=== PATIENT | female | born 1960 | race Caucasian/White ===

== ENCOUNTER 2020-04-14 11:19 | Day surgery (SDC) | payer BC ==
[~2020-04-14] VITALS: Ht 154.9 cm; Wt 56.0 kg
[2020-04-14 11:53] VITALS: BP 121/77
[2020-04-14] MEDS ORDERED: MULTIVITAMIN PO (11:57)
[2020-04-14] MEDS ORDERED: CHLORHEXIDINE 15 ML UDC ONE (12:00)
[2020-04-14] MEDS ORDERED: LACTATED RINGERS 1,000 ML IV SCH (12:00)
[2020-04-14] MEDS ORDERED: CHLORHEXIDINE 15 ML UDC MM ONE (12:00)
[2020-04-14] MEDS ORDERED: OMNIPAQUE 350 MG/ML, 50 ML BOTTLE ONE (14:00)
[2020-04-14] MEDS ORDERED: MIDAZOLAM 1 MG/ML, 2ML ONE (14:09)
[2020-04-14] MEDS ORDERED: FENTANYL PF 250 MCG/5ML ONE (14:09)
[2020-04-14] MEDS ORDERED: OXYcodone 5 MG/5 ML ORAL.SOL UDC PO PRN (14:30)
[2020-04-14] MEDS ORDERED: HYDROmorphone 1 MG/ML, 1ML INJ IVPush PRN (14:30)
[2020-04-14] MEDS ORDERED: MEPERIDINE/PF 25MG/0.5ML IVPush PRN (14:30)
[2020-04-14] MEDS ORDERED: ACETAMINOPHEN 325 MG TABLET PO PRN (14:30)
[2020-04-14] MEDS ORDERED: HALOPERIDOL 5 MG/ML IV PRN (14:30)
[2020-04-14] MEDS ORDERED: hydrALAzine 20 MG/ML, 1ML IV PRN (14:30)
[2020-04-14] MEDS ORDERED: LABETALOL 5MG/ML, 20ML IV PRN (14:30)
[2020-04-14] MEDS ORDERED: FENTANYL PF 100 MCG/2ML IV PRN (14:30)
[2020-04-14] MEDS ORDERED: KETOROLAC 30 MG/1 ML ONE (14:30)
[2020-04-14] MEDS ORDERED: PROMETHAZINE 25 MG/ML, 1ML IVPush PRN (14:30)
[2020-04-14] MEDS ORDERED: morphine SULFATE 10 MG/ML, 1ML IVPush PRN (14:30)
[2020-04-14] MEDS ORDERED: DEXAMETHASONE 4 MG/ML, 1ML ONE (14:43)
[2020-04-14] MEDS ORDERED: GLYCOPYRROLATE 0.2MG/1ML, 5ML ONE (14:43)
[2020-04-14] MEDS ORDERED: CEFAZOLIN 1,000 MG ONE (14:43)
[2020-04-14] MEDS ORDERED: NEOSTIGMINE 1 MG/ML, 10ML ONE (14:43)
[2020-04-14] MEDS ORDERED: ONDANSETRON 2MG/ML, 2ML ONE (14:43)
[2020-04-14] MEDS ORDERED: PROPOFOL 10 MG/ML, 20ML ONE (14:43)
[2020-04-14] MEDS ORDERED: ROCURONIUM 10MG/ML,5ML ONE (14:43)
[2020-04-14] MEDS ORDERED: LIDOCAINE 2% VISCOUS, 100ML MM ONE (15:26)
[2020-04-14] MEDS ORDERED: PROMETHAZINE 25 MG/ML, 1ML ONE (15:41)
[2020-04-14] MEDS ORDERED: PHENAZOPYRIDINE 200 MG TABLET ONE (16:12)
[2020-04-14] MEDS ORDERED: PHENAZOPYRIDINE 200 MG TABLET PO ONE (16:30)
== END 2020-04-14 20:10 | disposition home or self-care (01) ==
LOC: OUT 11:19 → 4NE 19:18 → OUT 20:10
PROVIDERS: ATTEND Urology
DX: N13.2 Hydronephrosis with renal and ureteral calculous obstruction (principal); Z20.828 Contact with and (suspected) exposure to other viral communicable diseases; N81.10 Cystocele, unspecified; Z79.899 Other long term (current) drug therapy; Z87.442 Personal history of urinary calculi; Z88.0 Allergy status to penicillin; Z88.2 Allergy status to sulfonamides; Z84.1 Family history of disorders of kidney and ureter
CPT/HCPCS: 52356; 74420; 82360; 87635; 88300; 93005; C1726; C1758; C1769; C2617; J0690; J1100; J1885; J2250; J2405; J2550; J2704; J2710; J3010; J7120; Q9967; G0378